=== PATIENT | male | born 1970 | race Caucasian/White ===

== ENCOUNTER 2020-08-04 09:37 | Observation (INO) ==
[2020-08-04 10:02] LABS: Basophils # 0.1 10*3/uL (0.0-0.2); Basophils % 0.5 % (0.0-0.8); Eosinophils # 0.2 10*3/uL (0.0-0.87); Eosinophils % 2.1 % (0.00-10.9); Hematocrit 36.5 VOL% (42.0-52.0); Hemoglobin 12.4 GM/DL (14.0-18.0); Immature Granulocytes % 0.6 %; Immature Granulocytes Absolute 0.07 #; Lymphocytes # 1.9 10*3/uL (1.4-4.0); Lymphocytes % 17.2 % (21.2-54.2); Mean Corpuscular Volume 94.3 FL (87-102); Mean Platelet Volume 9.8 FL (9.6-12.0); Monocytes % 5.4 % (1.7-12.7); Neutrophils % 74.2 % (38.7-73.9); Platelet Count 249 T/CUMM (130-400); Red Blood Count 3.87 MC/CUMM (3.8-5.5); Red Cell Distribution Width 13.9 % (9.3-17.3)
[2020-08-04 10:14] LABS: INR 1.1; PT Patient Result 11.9 SECS (9.8-11.9); Partial Thromboplastin Time 26.7 SECS (23.9-33.8)
[2020-08-04 10:22] LABS: Band Neutrophils 1 % (0-10); Eosinophils 1 % (0-10); Lymphocytes 21 % (20-55); Platelet Estimate Normal; Polychromasia Slight; Segmented Neutrophils 73 % (50-85); Total Cells Counted 100
[2020-08-04 10:29] LABS: Albumin 3.7 G/DL (3.4-5.0); Calcium 8.9 MG/DL (8.5-10.1); Osmolality,Calculated 280.7 MOS/KG (273-304); Potassium 3.8 MMOL/L (3.5-5.1); Total Protein 6.7 G/DL (6.4-8.2)
[2020-08-04] MEDS ORDERED: FUROSEMIDE 100 MG/10 ML VIAL IV STA (10:39)
[2020-08-04] MEDS ORDERED: FUROSEMIDE 40 MG/4 ML VIAL ONE (10:49)
[2020-08-04] MEDS ORDERED: DEXTROSE 50% 25 GM/50 ML VIAL IV PRN (11:29)
[2020-08-04] MEDS ORDERED: hydrALAZINE 20 MG/1 ML VIAL IV PRN (11:29)
[2020-08-04] MEDS ORDERED: GLUCAGON 1 MG VIAL IM PRN (11:29)
[2020-08-04] MEDS ORDERED: ONDANSETRON 4 MG/2 ML VIAL IV PRN (11:29)
[2020-08-04 11:36] LABS: Barbiturates Screen,Urine Negative (Negative); Benzodiazepines Screen,Urine Negative (Negative); Cannabinoid Screen,Urine Negative (Negative); Opiate Screen,Urine Negative (Negative); Phencyclidine Screen,Urine Negative (Negative)
[2020-08-04] MEDS: ENOXAPARIN 40 MG/0.4 ML SYRINGE SUBCUT SCH (12:00)
[2020-08-04 12:04] LABS: Risk Ratio 4.62; Thyroid Stimulating Hormone 1.51 uIU/ml (0.358-3.74); VLDL CHOLESTEROL 25.4 MG/DL
[2020-08-04] MEDS: ACETAMINOPHEN 325 MG TABLET PO PRN ×2 (14:08→20:14)
[2020-08-04] MEDS: carvediloL 6.25 MG TABLET PO SCH (20:14)
[2020-08-04] MEDS: ATORVASTATIN 40 MG TABLET PO SCH (20:14)
[2020-08-04] MEDS: FUROSEMIDE 40 MG/4 ML VIAL IV SCH (20:17)
[2020-08-05 06:02] LABS: Basophils # 0.1 10*3/uL (0.0-0.2); Basophils % 0.5 % (0.0-0.8); Eosinophils # 0.1 10*3/uL (0.0-0.87); Eosinophils % 1.4 % (0.00-10.9); Hematocrit 37.2 VOL% (42.0-52.0); Hemoglobin 12.8 GM/DL (14.0-18.0); Immature Granulocytes % 0.5 %; Immature Granulocytes Absolute 0.05 #; Lymphocytes # 2.2 10*3/uL (1.4-4.0); Lymphocytes % 22.2 % (21.2-54.2); Mean Corpuscular HGB Conc 34.4 GM/DL (32-36); Mean Corpuscular Volume 93.7 FL (87-102); Mean Platelet Volume 10.3 FL (9.6-12.0); Monocytes % 6.4 % (1.7-12.7); Platelet Count 260 T/CUMM (130-400); Red Blood Count 3.97 MC/CUMM (3.8-5.5); Red Cell Distribution Width 14.1 % (9.3-17.3); White Blood Count 9.7 T/CUMM (4-12)
[2020-08-05 06:31] LABS: Calcium 9.5 MG/DL (8.5-10.1); Osmolality,Calculated 278.8 MOS/KG (273-304); Potassium 3.9 MMOL/L (3.5-5.1)
[2020-08-05] MEDS ORDERED: DIGOXIN 0.5 MG/2 ML AMP IV ONE (07:11)
[2020-08-05] MEDS: ASPIRIN EC 81 MG TABLET PO SCH (08:22)
[2020-08-05] MEDS: LOSARTAN 25 MG TABLET PO SCH (08:22)
[2020-08-05] MEDS: PANTOPRAZOLE 40 MG TABLET PO SCH (08:23)
[2020-08-05] MEDS: buPROPion SR 150 MG TABLET PO SCH (08:23)
[2020-08-05] MEDS: FUROSEMIDE 40 MG/4 ML VIAL IV SCH ×2 (08:23→15:16)
[2020-08-05] MEDS: carvediloL 6.25 MG TABLET PO SCH (08:23)
[2020-08-05] MEDS: CLOPIDOGREL 75 MG TABLET PO SCH (08:23)
[2020-08-05] MEDS ORDERED: DIGOXIN 0.125 MG TABLET PO SCH (09:00)
[2020-08-05] MEDS ORDERED: FUROSEMIDE 20 MG/2 ML VIAL IV ONE (10:01)
[2020-08-05] MEDS: ENOXAPARIN 40 MG/0.4 ML SYRINGE SUBCUT SCH (11:20)
[2020-08-05] MEDS: ACETAMINOPHEN 325 MG TABLET PO PRN (17:22)
[2020-08-05] MEDS: carvediloL 12.5 MG TABLET PO SCH (21:23)
[2020-08-05] MEDS: ATORVASTATIN 40 MG TABLET PO SCH (21:23)
[2020-08-06 06:12] LABS: Basophils % 0.4 % (0.0-0.8); Eosinophils # 0.2 10*3/uL (0.0-0.87); Eosinophils % 2.2 % (0.00-10.9); Hematocrit 38.9 VOL% (42.0-52.0); Hemoglobin 13.5 GM/DL (14.0-18.0); Immature Granulocytes % 0.4 %; Immature Granulocytes Absolute 0.04 #; Lymphocytes # 1.7 10*3/uL (1.4-4.0); Lymphocytes % 19.3 % (21.2-54.2); Mean Corpuscular HGB Conc 34.7 GM/DL (32-36); Mean Corpuscular Volume 92.6 FL (87-102); Mean Platelet Volume 9.8 FL (9.6-12.0); Monocytes % 7.2 % (1.7-12.7); Neutrophils % 70.5 % (38.7-73.9); Platelet Count 231 T/CUMM (130-400); White Blood Count 8.9 T/CUMM (4-12)
[2020-08-06 06:25] LABS: Calcium 9.3 MG/DL (8.5-10.1); Osmolality,Calculated 281.7 MOS/KG (273-304); Potassium 3.9 MMOL/L (3.5-5.1)
[2020-08-06 08:26] VITALS: BP 109/88
[2020-08-06] MEDS: ASPIRIN EC 81 MG TABLET PO SCH (08:28)
[2020-08-06] MEDS: CLOPIDOGREL 75 MG TABLET PO SCH (08:28)
[2020-08-06] MEDS: LOSARTAN 25 MG TABLET PO SCH (08:28)
[2020-08-06] MEDS: FUROSEMIDE 40 MG/4 ML VIAL IV SCH (08:29)
[2020-08-06] MEDS: carvediloL 12.5 MG TABLET PO SCH (08:29)
[2020-08-06] MEDS: PANTOPRAZOLE 40 MG TABLET PO SCH (08:29)
[2020-08-06] MEDS: buPROPion SR 150 MG TABLET PO SCH (08:31)
[2020-08-06] MEDS ORDERED: DIGOXIN 0.25 MG TABLET PO SCH (09:00)
[2020-08-06] MEDS: ENOXAPARIN 40 MG/0.4 ML SYRINGE SUBCUT SCH (10:48)
[2020-08-06] MEDS: ACETAMINOPHEN 325 MG TABLET PO PRN (10:49)
== END 2020-08-06 11:15 | disposition home or self-care (01) ==
LOC: EDBD → EDUNIT# → N.EDINP 09:37 → N.ED 09:37 → SUATTDRO 11:04 → N.EDINP 12:24 → N.TELEN 12:42
PROVIDERS: ADMIT Emergency Medicine; ATTEND Internal Medicine Geriatric Medicine